=== PATIENT | male | born 1965 | race African-American/Black ===

== ENCOUNTER 2024-04-25 22:25 | Emergency (ER) | payer MEDICAID ==
[~2024-04-25] VITALS: Ht 172.7 cm; Wt 81.0 kg
[2024-04-25 22:37] VITALS: BP 130/75; PULSE 95; RESP 18; TEMP 36.7; O2SAT 98
[2024-04-25] MEDS: KETOROLAC 30MG/ML VIAL IV ONE (22:45)
[2024-04-25] MEDS: KETOROLAC 30MG/ML VIAL IV SCH (23:00)
[2024-04-25] MEDS: KETOROLAC 30MG/ML VIAL IM ONE (23:15)
== END 2024-04-26 04:04 | disposition left against medical advice (07) ==
LOC: ER 22:25
DX: T14.8XXA Other injury of unspecified body region, initial encounter (principal); Z53.21 Procedure and treatment not carried out due to patient leaving prior to being seen by health care provider; Y92.89 Other specified places as the place of occurrence of the external cause
CPT/HCPCS: 96372; J1885; Z7610